=== PATIENT | female | born 1965 | race Caucasian/White ===

== ENCOUNTER 2020-09-19 13:05 | Emergency (ER) | payer BC ==
[~2020-09-19] VITALS: Ht 165.1 cm; Wt 94.1 kg
[2020-09-19] MEDS ORDERED: RAMI1CAP26 PO (13:19)
[2020-09-19] MEDS ORDERED: METO37.5 PO (13:19)
[2020-09-19] MEDS ORDERED: fentaNYL 100 MCG/2 ML INJECTION IV ONE (13:45)
[2020-09-19] MEDS ORDERED: fentaNYL 100 MCG/2 ML INJECTION IM ONE (14:05)
[2020-09-19] MEDS ORDERED: LIDOCAINE 2% MDV 20ML VIAL SC ONE (15:55)
[2020-09-19] MEDS ORDERED: PERC5TAB12 PO ×2 (17:05→17:31)
[2020-09-19 17:30] VITALS: BP 160/83
== END 2020-09-19 17:31 | disposition home or self-care (01) ==
LOC: EDBD 13:05 → M ED 13:05
DX: S92.531A Displaced fracture of distal phalanx of right lesser toe(s), initial encounter for closed fracture (principal); S52.572A Other intraarticular fracture of lower end of left radius, initial encounter for closed fracture; S52.612A Displaced fracture of left ulna styloid process, initial encounter for closed fracture; S90.811A Abrasion, right foot, initial encounter; W10.8XXA Fall (on) (from) other stairs and steps, initial encounter; Y92.833 Campsite as the place of occurrence of the external cause; Z79.899 Other long term (current) drug therapy; Z88.8 Allergy status to other drugs, medicaments and biological substances; Z91.018 Allergy to other foods